=== PATIENT | female | born 1980 | race Caucasian/White ===

== ENCOUNTER 2024-03-09 08:04 | Day surgery (SDC) | payer BC ==
[~2024-03-09 08:04] MED LIST: Albuterol 0.083% 2.5 MG/3 ML Neb Soln NEB PRN; HYDROmorphone 1 MG/ML Syringe IVPUSH PRN; Metoclopramide 10 MG/2 ML SDV IVPUSH PRN; Morphine 2 MG/ML SYRINGE IVPUSH PRN; Naloxone 0.4 MG/ML SDV IVPUSH PRN; Ondansetron 4 MG/2 ML SDV IVPUSH PRN; Phenylephrine HCl In 0.9% NaCl 1 MG/10 ML Syringe IVPUSH PRN; ceFAZolin 2 GM in Sodium Chloride 0.9% 50 ML IV ONE; fentaNYL 50 MCG/ML SDV IVPUSH PRN
[2024-03-09] MEDS: Scopalamine 1mg/3day Transdermal Patch TOP ONE (08:25)
[2024-03-09] MEDS: Lactated Ringers 1,000 ML IV SCH (08:30)
[2024-03-09] MEDS ORDERED: Morphine 10 MG/ML SDV ONE (08:32)
[2024-03-09] MEDS ORDERED: fentaNYL 250 MCG/5 ML SDV ONE (08:32)
[2024-03-09] MEDS ORDERED: Propofol 200 MG/20 ML SDV ONE (08:32)
[2024-03-09] MEDS ORDERED: propofoL 500 MG/50 ML 50 ML ONE ×3 (08:32→10:31)
[2024-03-09] MEDS ORDERED: Ketamine HCL/NACL, ISO-OSM 50 MG/5 ML Syringe ONE ×2 (08:33→10:36)
[2024-03-09] MEDS ORDERED: Famotidine 20 MG/2 ML SDV ONE (08:35)
[2024-03-09] MEDS ORDERED: Ropivacaine 0.5% 5 MG/ML 30 ML SDV ONE (08:35)
[2024-03-09] MEDS: Scopalamine 1mg/3day Transdermal Patch ONE (08:39)
[2024-03-09] MEDS ORDERED: Bupivacaine 0.5% 30 ML SDV ONE (09:04)
[2024-03-09] MEDS ORDERED: ceFAZolin 1 GM Vial ONE (09:04)
[2024-03-09] MEDS ORDERED: dexmedeTOMIDine HCl 200 MCG/2 ML SDV ONE (09:28)
[2024-03-09] MEDS ORDERED: Esmolol 100 MG/10 ML SDV ONE (10:17)
[2024-03-09] MEDS ORDERED: Rocuronium Bromide 50 MG/5 ML Syringe ONE (10:30)
[2024-03-09] MEDS ORDERED: Dexamethasone 4 MG/ML 5 ML MDV ONE (10:34)
[2024-03-09] MEDS ORDERED: Ondansetron 4 MG/2 ML SDV ONE (10:34)
[2024-03-09] MEDS ORDERED: Sugammadex Sodium 200 MG/2 ML VIAL IV ONE (10:44)
[2024-03-09] MEDS ORDERED: Ketorolac 30 MG/ML SDV ONE (10:44)
[2024-03-09] MEDS ORDERED: Morphine 2 MG/ML SYRINGE IVPUSH PRN (11:14)
[2024-03-09] MEDS ORDERED: Acetaminophen/HYDROcodone 325-5 MG Tab PO PRN (11:14)
[2024-03-09] MEDS ORDERED: Lactated Ringers 1,000 ML IV SCH (11:15)
[2024-03-09] MEDS ORDERED: Lidocaine 2% 11 ML Jelly Filled Syringe ONE (11:48)
[2024-03-09] MEDS: Acetaminophen/HYDROcodone 325-5 MG Tab PO PRN (12:36)
== END 2024-03-09 12:41 | disposition home or self-care (01) ==
LOC: MW.SDS 08:04
PROVIDERS: ATTEND Surgery
DX: K80.10 Calculus of gallbladder with chronic cholecystitis without obstruction (principal); F34.1 Dysthymic disorder; K21.9 Gastro-esophageal reflux disease without esophagitis; E11.9 Type 2 diabetes mellitus without complications; Z79.899 Other long term (current) drug therapy; Z88.2 Allergy status to sulfonamides
CPT/HCPCS: 47562; 64488; 81025; A9270; J0131; J0665; J1100; J1885; J2272; J2405; J2704; J2795; J3010; J3490; J7120; 00790; J0690